=== PATIENT | female | born 1985 | race Hispanic/Latino ===

== ENCOUNTER 2017-08-08 18:50 | Emergency (ER) | payer OTHER ==
--- NOTE | 2017-08-08 20:23 | ED PDOC ---
- ECG O2 Sat by Pulse Oximetry: 100 Disposition - Disposition
--- NOTE | 2017-08-08 20:37 | ED PDOC ---
HPI: General Adult Time Seen by Provider: 08/08/17 20:07 Chief Complaint (Nursing): Anxiety Chief Complaint (Provider): Palpitations History Per: Patient History/Exam Limitations: no limitations Onset/Duration Of Symptoms: Days Current Symptoms Are (Timing): Better Additional Complaint(s): Pt. states she may have taken 100mg of adderall instead of her usual 50mg in the morning. States during the day has been having palpitations, pain to the back left upper, numbness to left arm, and panic attacks. Is feeling better now with occasional palpitations. No other meds or drugs, etoh. Not suicidal or homicidal. States no cough, chest pain. No fever, dyspnea. No headaches, dizziness. Past Medical History Reviewed: Nursing Documentation, Vital Signs Vital Signs: Last Vital Signs Temp 97 F L 08/08/17 18:57 Pulse 113 H 08/08/17 18:57 Resp 20 08/08/17 18:57 BP 145/90 08/08/17 18:57 Pulse Ox 100 08/08/17 20:50 - Medical History Other PMH: ADHD, panic attacks - Surgical History Surgical History: No Surg Hx - Family History Family History: States: Unknown Family Hx - Living Arrangements Living Arrangements: With Family - Social History Current smoker - smoking cessation education provided: No Alcohol: None Drugs: Denies - Allergies Allergies/Adverse Reactions: Allergies Allergy/AdvReac Type Severity Reaction Status Date / Time No Known Allergies Allergy Verified 08/08/17 18:56 Review of Systems ROS Statement: Except As Marked, All Systems Reviewed And Found Negative Cardiovascular: Positive for: Palpitations Musculoskeletal: Positive for: Back Pain Neurological: Positive for: Numbness Physical Exam - Reviewed Nursing Documentation Reviewed: Yes Vital Signs Reviewed: Yes - Physical Exam Appears: Positive for: Well, Non-toxic, No Acute Distress Head Exam: Positive for: ATRAUMATIC, NORMAL INSPECTION, NORMOCEPHALIC Skin: Positive for: Normal Color, Warm, DRY Eye Exam: Positive for: EOMI, Normal appearance, PERRL ENT: Positive for: Normal ENT Inspection Neck: Positive for: Normal, Painless ROM Cardiovascular/Chest: Positive for: Regular Rate, Rhythm Respiratory: Positive for: CNT, Normal Breath Sounds Gastrointestinal/Abdominal: Positive for: Normal Exam, Bowel Sounds, Soft. Negative for: Tenderness Back: Positive for: Normal Inspection. Negative for: L CVA Tenderness, R CVA Tenderness Extremity: Positive for: Normal ROM. Negative for: Tenderness, Pedal Edema Neurologic/Psych: Positive for: Alert, instrumental music teacher II-XII, Oriented. Negative for: Motor/Sensory Deficits - ECG ECG: Positive for: Interpreted By Me, Viewed By Me ECG Rhythm: Positive for: Normal QRS, Normal ST Segment, Sinus Rhythm O2 Sat by Pulse Oximetry: 100 Pulse Ox Interpretation: Normal - Progress ED Course And Treament: 2048: Stable. Spoke with poison. States supportive care for few hours. Pt. refusing all blood work and IV as she gets panic from it and vaso-vagal. Poison ok to monitor on the monitoring manager. Pt. will drink water. 2215: Stable Feels much better. No symptoms. Fu with pcp. AAOx3. Disposition - Clinical Impression Clinical Impression: Medication reaction - Patient ED Disposition Is Patient to be Admitted: No Counseled Patient/Family Regarding: Diagnosis, Need For Followup - Disposition Referrals: [facility] [Outside] - 08/09/17 Disposition: Routine/Home Disposition Time: 22:17 Condition: STABLE Additional Instructions: Return if not better in 3 days. Instructions: Amphetamine/Dextroamphetamine (By mouth) Forms: [facility] (Sudanese)
[2017-08-08 22:34] VITALS: BP 128/72; PULSE 88; RESP 17; TEMP 98.2; O2SAT 99
--- NOTE | 2017-08-10 11:23 | CARD ---
APPROVED REPORT EKG Measurement Heart [id number] <Conclusion> Normal sinus rhythm Possible Left atrial enlargement Borderline ECG
== END 2017-08-08 22:35 | disposition home or self-care (01) ==
LOC: H.ER 18:50
DX: F41.9 Anxiety disorder, unspecified (principal); F90.9 Attention-deficit hyperactivity disorder, unspecified type

== ENCOUNTER 2017-08-09 15:00 | Emergency (ER) | payer OTHER ==
[2017-08-09 15:02] VITALS: BMI 18.6
[2017-08-09 15:03] VITALS: BP 136/96; PULSE 115; RESP 17; TEMP 98.6; O2SAT 99
--- NOTE | 2017-08-09 15:34 | ED PDOC ---
Arrival/HPI - General Chief Complaint: ENT Problem Time Seen by Provider: 08/09/17 15:08 Historian: Patient - History of Present Illness Narrative History of Present Illness (Text): 31 year old female who presents to the emergency department with a complaint of left ear redness and swelling status post re-piercing ear 1 hour prior to arrival. Patient also reported redness, pain and swelling to her left 3rd toe after showering. Denied any fever, chills, trauma, injury, ear drainage or joint pain. PMD: none provided Time/Duration: Prior to Arrival, 1 hour Symptom Onset: Sudden Past Medical History - Provider Review Nursing Documentation Reviewed: Yes - Tetanus Immunization Tetanus Immunization: Up to Date - Psychiatric Hx Substance Use: No Family/Social History - Physician Review Nursing Documentation Reviewed: Yes Family/Social History: Unknown Family HX Smoking Status: Never Smoked Hx Alcohol Use: No Hx Substance Use: No Allergies/Home Meds Allergies/Adverse Reactions: Allergies No Known Allergies Allergy (Verified 08/09/17 15:04) Review of Systems - Physician Review All systems were reviewed & negative as marked: Yes - Review of Systems Constitutional: absent: Fevers (or chills) ENT: Other (left ear redness and swelling). absent: Normal (ear drainage) Musculoskeletal: Other (left 3rd toe redness, pain and swelling). absent: Arthralgias (or trauma/injury) Physical Exam Vital Signs Temp Pulse Resp BP Pulse Ox 08/09/17 15:02 98.6 F 115 H 17 136/96 H 99 - Systems Exam Ears: Present: Erythema (left lobe with pierced hole noted). No: Normal, Other (edmea or tenderness) Mouth: Present: Moist Mucous Membranes Pharnyx: Present: Normal Nose (Internal): Present: Normal Inspection Neck: Present: Normal Range of Motion Lower Extremity: Present: Edema (left 3rd toe), NORMAL PULSES, Normal ROM, Erythema (left 3rd toe), Neurovascularly Intact, Capillary Refill < 2 s. No: Normal Inspection, Tenderness, Deformity, Temperature Abnormalties Neurological: Present: GCS=15, CN II-XII Intact, Speech Normal, Motor Func Grossly Intact, Normal Sensory Function, Gait Normal Skin: Present: Warm, Dry, Normal Color. No: Rashes Psychiatric: Present: Alert, Oriented x 3 Medical Decision Making ED Course and Treatment: Initial Impression: Initial Plan: * Keflex 500mg PO * Motrin 600mg PO Patient instructed on proper wound care. Advised to follow up with primary care physician in 1-2 days without fail. Advised to take medication as prescribed. Return to the emergency room at any time for any new or worsening symptoms. Patient states she fully agrees with and understands discharge instructions. States that she agrees with the plan and disposition. Verbalized and repeated discharge instructions and plan. I have given the patient opportunity to ask any additional questions. Scribe Attestation: Documented by Chante Aviles, acting as a scribe for Lauren Lobato PA-C. Provider Scribe Attestation: All medical record entries made by the Scribe were at my direction and personally dictated by me. I have reviewed the chart and agree that the record accurately reflects my personal performance of the history, physical exam, medical decision making, and the department course for this patient. I have also personally directed, reviewed, and agree with the discharge instructions and disposition. 08/09/17 19:31 - Medication Orders Current Medication Orders: Discontinued Medications Cephalexin Monohydrate (Keflex) 500 mg PO STAT STA PRN Reason: Protocol Stop: 08/09/17 15:32 Last Admin: 08/09/17 16:01 Dose: 500 mg Ibuprofen (Motrin Tab) 600 mg PO STAT STA Stop: 08/09/17 15:32 Last Admin: 08/09/17 15:45 Dose: 600 mg [facility] Pain Assessment Document 08/09/17 15:45 [facility] (Rec: 08/09/17 16:01 [facility] [id number]) Pain Reassessment Is this a pain reassessment? 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 Disposition/Present on Arrival - Present on Arrival Any Indicators Present on Arrival: No History of DVT/PE: No History of Uncontrolled Diabetes: No Urinary Catheter: No History of Decub. Ulcer: No - Disposition Have Diagnosis and Disposition been Completed?: Yes Diagnosis: Complication of ear piercing, Toe pain, left Disposition: HOME/ ROUTINE Disposition Time: 15:33 Patient Plan: Discharge Condition: STABLE Discharge Instructions (ExitCare): Acute Wound Care (ED) Print Language: MALAWIAN Additional Instructions: Thank you for letting us take care of you today. You were treated for pain to L ear s/p piercing, L toe pain. The emergency medical care you received today was directed at your acute symptoms. If you were prescribed any medication, please fill it and take as directed. It may take several days for your symptoms to resolve. Return to the Emergency Department if your symptoms worsen, do not improve, or if you have any other problems. Please contact your doctor in 2 days for re-evaluation and follow up / or call one of the physicians/clinics you have been referred to that are listed on the Patient Visit Information form that is included in your discharge packet. Bring any paperwork you were given at discharge with you along with any medications you are taking to your follow up visit. Our treatment cannot replace ongoing medical care by a primary care provider (PCP) outside of the emergency department. Thank you for allowing the [facility] team to be part of your care today. Prescriptions: Cephalexin [Keflex] 500 mg PO Q6 #28 capsule Ibuprofen [Motrin Tab] 600 mg PO QID PRN #20 tab PRN Reason: Pain, Moderate (4-7) Referrals: Anthony Eaton MD [Staff Provider] - Forms: [email or web address] (Taiwanese), [facility] ED School/Work Excuse
== END 2017-08-09 16:14 | disposition home or self-care (01) ==
LOC: H.ER 15:00
DX: H93.90 Unspecified disorder of ear, unspecified ear (principal); M79.675 Pain in left toe(s)

== ENCOUNTER 2018-12-09 23:11 | Emergency (ER) | payer OTHER ==
[2018-12-09 23:12] VITALS: BMI 18.6
[2018-12-09] MEDS ORDERED: Sodium Chloride 0.9% 1,000 ML IV STA (23:48)
[2018-12-10 00:20] LABS: BASO % 0.6 % (0.0-2.0); EOS # 0.1 K/uL (0.0-0.7); EOS % 1.5 % (0.0-4.0); HEMOGLOBIN 14.4 g/dL (12.0-16.0); LYMPH # 1.4 K/uL (1.0-4.3); LYMPH % 17.2 % (20.0-40.0); MEAN CELL VOLUME 99.1 fl (81.0-99.0); MEAN CORPUSCULAR HEMOGLOBIN 33.7 pg (27.0-31.0); MEAN PLATELET VOLUME 7.3 fl (7.2-11.7); MONO # 0.8 K/uL (0.0-0.8); MONO % 9.5 % (0.0-10.0); NEUT # 5.9 K/uL (1.8-7.0); NEUT % 71.2 % (50.0-75.0); RBC 4.29 Mil/uL (3.80-5.20); RED CELL DISTRIBUTION WIDTH 14.6 % (11.5-14.5); WHITE BLOOD COUNT 8.2 K/uL (4.8-10.8)
[2018-12-10 00:30] LABS: BLOOD UREA NITROGEN 16 mg/dl (7-17); CALCIUM 9.7 mg/dL (8.4-10.2); GFR NON-AFRICAN AMERICAN > 60
[2018-12-10 00:33] VITALS: O2SAT 99
--- NOTE | 2018-12-10 02:16 | ED PDOC ---
HPI: Psych/Substance Abuse Time Seen by Provider: 12/09/18 23:19 Chief Complaint (Nursing): Anxiety Chief Complaint (Provider): Anxiety History Per: Patient History/Exam Limitations: no limitations Onset/Duration Of Symptoms: Hrs (x1 GL ACCOUNTANT) Associated Symptoms: Anxiety Additional Complaint(s): 33 y/o female with history of anxiety presents to the ED for anxiety. Patient states she has been stressed out because of cellulitis to her face for which she is taking Doxycycline. Patient states she was drinking earlier in the day and had a bottle of champagne. She also states she had "a lot of cocaine." Patient states all day she has been feeling anxious and nervous and feels like the cellulitis is spreading throughout her body. She reports having bruises on her left arm but is unsure where they came from. Approximately 1 hour GL ACCOUNTANT patient started feeling chest tightness, palpitations and felt extreme panic. Patient was prescribed Vistaril but states she does not take it. Past Medical History Reviewed: Historical Data, Nursing Documentation, Vital Signs Vital Signs: Last Vital Signs Temp 98.7 F 12/09/18 23:14 Pulse 97 H 12/10/18 01:10 Resp 22 12/10/18 01:10 BP 147/99 H 12/10/18 01:10 Pulse Ox 99 12/10/18 01:10 Primary Care Provider: FAMILY PROVIDER,NO - Medical History PMH: Anxiety, Depression - Family History Family History: States: Unknown Family Hx - Home Medications Home Medications: Ambulatory Orders Medication Instructions Recorded Cephalexin [Keflex] 500 mg PO Q6 #28 capsule 08/09/17 Ibuprofen [Motrin Tab] 600 mg PO QID PRN #20 tab 08/09/17 - Allergies Allergies/Adverse Reactions: Allergies Allergy/AdvReac Type Severity Reaction Status Date / Time No Known Allergies Allergy Verified 08/09/17 15:04 Review of Systems ROS Statement: Except As Marked, All Systems Reviewed And Found Negative Cardiovascular: Positive for: Chest Pain (tightness), Palpitations Skin: Positive for: Bruising (left arm) Psych: Positive for: Anxiety, Other (panic) Physical Exam - Reviewed Nursing Documentation Reviewed: Yes Vital Signs Reviewed: Yes - Physical Exam Appears: Positive for: Non-toxic (anxious appearing), No Acute Distress (tearful) Head Exam: Positive for: ATRAUMATIC, NORMAL INSPECTION, NORMOCEPHALIC Skin: Negative for: Normal Color (healing facial cellulitis to right side of face) Eye Exam: Positive for: EOMI, Normal appearance, PERRL ENT: Positive for: Normal ENT Inspection Neck: Positive for: Normal, Painless ROM Cardiovascular/Chest: Positive for: Tachycardia. Negative for: Murmur Respiratory: Positive for: Normal Breath Sounds. Negative for: Respiratory Distress Gastrointestinal/Abdominal: Positive for: Normal Exam, Soft. Negative for: Tenderness Back: Positive for: Normal Inspection Extremity: Positive for: Normal ROM (full ROM of left arm), Other. Negative for: Deformity Neurological/Psych: Positive for: Awake, Alert, Normal Tone, Mood/Affect (tearful). Negative for: Motor/Sensory Deficits - Laboratory Results Result Diagrams: 12/10/18 00:15 12/10/18 00:15 Lab Results: Beta HCG, Quant < 2.39 mIU/mL 12/10/18 00:15 - ECG O2 Sat by Pulse Oximetry: 99 (RA) Pulse Ox Interpretation: Normal Medical Decision Making Medical Decision Making: Time: 23:48 A/P: Anxiety. Likely related to alcohol and drug consumption on top of stress related to cellulitis. Will provide supportive care and continue to monitor EKG BMP Beta HCG CBC w/ diff Ativan 1 mg IV Fluids 02:56 Upon provider evaluation patient is medically stable, and requires no further treatment in the ED at this time. Patient will be discharged home. Counseling was provided and all questions were answered regarding diagnosis. There is agreement to discharge plan. Return if symptoms persist or worsen. Scribe Attestation: Documented by Handy Galarza, acting as a scribe Todd Roldan MD. Provider Scribe Attestation: All medical record entries made by the Scribe were at my direction and pe rsonally dictated by me. I have reviewed the chart and agree that the record accurately reflects my personal performance of the history, physical exam, medical decision making, and the department course for this patient. I have also personally directed, reviewed, and agree with the discharge instructions and disposition. Disposition - Clinical Impression Clinical Impression: Anxiety - Disposition Referrals: [facility] [Outside] Disposition: Routine/Home Disposition Time: 02:56 Condition: IMPROVED Additional Instructions: DEJUAN AMEZQUITA, thank you for letting us take care of you today. Your provider was Rashad Roldan MD and you were treated for POSS ANXIETY. The emergency medical care you received today was directed at your acute symptoms. If you were pre scribed any medication, please fill it and take as directed. It may take several days for your symptoms to resolve. Return to the Emergency Department if your symptoms worsen, do not improve, or if you have any other problems. Please contact your doctor or call one of the physicians/clinics you have been referred to that are listed on the Patient Visit Information form that is included in your discharge packet. Bring any paperwork you were given at discharge with you along with any medications you are taking to your follow up visit. Our treatment cannot replace ongoing medical care by a primary care provider outside of the emergency department. Thank you for allowing the [facility] team to be part of your care today. If you had an X-Ray or CT scan: A Radiologist will review the ED reading if any change in treatment is needed we will contact you. If you had a blood, urine, or wound culture: It will take several days for the results, if any change in treatment is needed we will contact you. If you had an STI test: It will take 48 hours for the results. Please call after 1 week if you have not heard back. Instructions: Anxiety, Adult (DC) Forms: [facility] (Algerian)
[2018-12-10 02:48] VITALS: BP 143/82; PULSE 88; RESP 20; TEMP 98.8
--- NOTE | 2018-12-10 11:24 | CARD ---
APPROVED REPORT Date of service: 12/09/2018 EKG Measurement Heart [id number] [id number] <Conclusion> Sinus tachycardia Otherwise normal ECG
== END 2018-12-10 03:00 | disposition home or self-care (01) ==
LOC: H.ER 23:11
DX: F41.9 Anxiety disorder, unspecified (principal)
CPT/HCPCS: 80048; 84702; 85025; 93005; 96360; 99285; J7030